=== PATIENT | female | born 1990 | race Caucasian/White ===

== ENCOUNTER → 2023-05-25 10:00 | Outpatient (CLI) | payer OTHER, SELFPAY ==
--- NOTE | ~2023-05-25 | US_ITS ---
Pelvic ultrasound. Clinical History: Pelvic pain Technique: Realtime transabdominal and transvaginal scanning of the pelvis was performed. Color flow Doppler and Doppler spectral analysis were performed. Findings: The uterus is anteverted. The endometrial stripe has a thickness of 5 mm. IUD in satisfact ory position. No focal mass is identified. The right ovary measures 2.2 x 3.4 x 1.8 cm. No significant right ovarian or adnexal mass is seen. The left ovary measures 2.6 x 1.4 x 2.5 cm. No significant left ovarian or adnexal mass is seen. There is trace free fluid in the cul de sac. Impression: IUD in satisfactory position, otherwise unremarkable exam. Reviewed, dictated and finalized at [facility]. Impression: IUD in satisfactory position, otherwise unremarkable exam.
== END ==
PROVIDERS: PCP Advanced Practice Midwife; Visit Provider Advanced Practice Midwife
DX: R10.32 Left lower quadrant pain (principal)
CPT/HCPCS: 76856

== ENCOUNTER 2023-05-29 12:03 | Emergency (ER) | payer OTHER, SELFPAY ==
--- NOTE | ~2023-05-29 | CT_ITS ---
EXAMINATION: CT abdomen pelvis w con INDICATION: Generalized pelvic pain TECHNIQUE: Computed tomographic images of the abdomen and pelvis were obtained after the administrati on of 100 cc of Omnipaque 350 intravenous contrast. The dose-length product (DLP) was 625.27 mGy-cm. Automated exposure control and iterative reconstruction technique were employed. COMPARISON: None available FINDINGS: Minimal dependent atelectasis is present in the lung bases. The heart size is normal. The l iver, spleen, pancreas, gallbladder, and adrenal glands are normal. The kidneys are unremarkable. No pathologically enlarged abdominal or pelvic lymph nodes are identified. No free intraperitoneal gas o r evidence of bowel obstruction. An IUD is present in the uterus in expected position. There is a sma ll volume of fluid in the cul-de-sac. There is a tiny umbilical hernia containing fat. IMPRESSION: 1. No CT correlate for the patient's symptoms. Small volume of free fluid in the cul-de-sac, likely p hysiologic. Reviewed, dictated and finalized at location [facility]. IMPRESSION: 1. No CT correlate for the patient's symptoms. Small volume of free fluid in th e cul-de-sac, likely physiologic.
[2023-05-29 12:05] VITALS: BP 145/92; PULSE 90; RESP 16; TEMP 36.7; O2SAT 97
[2023-05-29 12:26] LABS: Basophils Absolute Auto 0.1 K/mm3 (0.0-0.1); Basophils Percent Auto 0.6 % (0.2-1.2); Eosinophils Absolute Auto 0.1 K/mm3 (0-0.3); Eosinophils Percent Auto 1.2 % (0-4.4); Hematocrit 42.9 % (37.0-47.0); Hemoglobin 13.6 g/dL (12.0-15.0); Immature Granulocyte Absolute 0.03 K/mm3 (0.00-0.031); Immature Granulocyte Percent A 0.3 % (0-0.5); Lymphocytes Absolute Auto 2.52 K/mm3 (0.9-3.2); Lymphocytes Percent Auto 24.1 % (18.3-44.2); Mean Corpuscular HGB Conc 31.7 g/dl (32-36); Mean Corpuscular Hemoglobin 29.4 pg (26-34); Mean Corpuscular Volume 92.7 fl (80-100); Mean Platelet Volume 11.5 fl (7.4-10.4); Monocytes Absolute Auto 0.7 K/mm3 (0.1-0.6); Monocytes Percent Auto 6.9 % (2.6-8.5); Neutrophils Percent Auto 66.9 % (45.5-73.1); Platelet Count Result 245 k/mm3 (150-375); Red Blood Count 4.63 M/mm3 (4.2-5.4); Red Cell Distribution Width 13.2 % (11.5-14.5); White Blood Count 10.5 K/mm3 (4.5-10.0)
[2023-05-29 12:35] LABS: Alanine Aminotransferase 17 U/L (6-35); Albumin Level 4.9 g/dL (3.5-5.1); Alkaline Phosphatase 65 U/L (38-126); Anion Gap 11 mmol/L (8-16); Aspartate Amino Transferase 23 U/L (14-36); Bilirubin,Total 0.9 mg/dL (0.2-1.3); Blood Urea Nitrogen 11 mg/dL (7-17); Calcium 9.2 mg/dL (8.4-10.2); Carbon Dioxide 26 mmol/L (22-30); Chloride 103 mmol/L (98-107); Estimated CRCL calculation 120 ml/min; Estimated Glomerular Filt Rate > 60; Glucose 98 mg/dL (65-110); Lipase 48 U/L (23-300); Potassium 3.8 mmol/L (3.4-5.0); Sodium 140 mmol/L (137-145)
[2023-05-29 12:41] LABS: Appearance Urine Clear (Clear); Bacteria Urine None Seen /hpf; Bilirubin Urine Negative (Negative); Blood Urine Negative (Negative); Color Urine Yellow (Yellow); Glucose Urine UA Negative (Negative); Ketones Urine Trace mg/dL (Negative); Leukocyte Esterase Ur 2+ LEU/UL (Negative); Need Manual Microscopic Reviewed; Nitrate Urine Negative (Negative); Non Pathogenic Casts 0-2; Protein Urine Negative (Negative); Specific Grav Ur 1.008 (1.001-1.035); Squamous Epithelial Cell Urine Occasional /hpf (Few); Urobilinogen Urine 0.2 mg/dL (<2.0); pH Urine 5.5 (5.0-9.0)
[2023-05-29 12:42] LABS: Add Urine Microscopic? YES
--- NOTE | 2023-05-29 12:45 | ED.ABDPAIN ---
HPI - Abdominal Pain General Chief Complaint: Abdominal Pain Stated Complaint: abdominal pain Time Seen by Provider: 05/29/23 12:27 History of Present Illness HPI narrative: Patient is a 33-year-old female , all delivered via uncomplicated vaginal deliveries, last was in 2016, here with pelvic and abdominal pain. patient notes that the pain is been present intermittently for the last 1 month. The pain seems to be located on the left side and suprapubically. She intermittently takes ibuprofen which occasionally helps with the pain but does not make it fully resolved. She does not have a primary care doctor so she went to see her OBGYN this week and they ordered at transvaginal ultrasound. The ultrasound resulted normal today so the patient was concerned that she had no answers for why her pain was present so his prompted her to come to the emergency department for evaluation given her lack of primary care doctor. She denies any associated nausea or vomiting. She denies any urinary symptoms. She denies any vaginal bleeding or discharge. She notes that she has had no prior abdominal surgeries. No family history of colon cancer, no prior colonoscopy herself. She does note a long standing history of some diarrhea with eating spicy foods but otherwise has had normal bowel movements. No sick contacts. Related Data Allergies Allergy/AdvReac Type Severity Reaction Status Date / Time No Known Allergies Allergy Unverified 05/19/16 14:44 Review of Systems Review of Systems: CONSTITUTIONAL: Denies fever, chills, or sweats. EYES: Denies visual changes, redness, or discharge. ENT: Denies rhinorrhea, congestion, sore throat, or otalgia. CARDIOVASCULAR: Denies chest pain, palpitations, or edema. RESPIRATORY: Denies cough or dyspnea. GASTROINTESTINAL: abdominal pain, no nausea or vomiting, occasional chronic diarrhea. GENITOURINARY: Denies dysuria or hematuria. SKIN: Denies rash or itching. MUSCULOSKELETAL: Denies back pain, joint pain, or myalgia. NEUROLOGIC: Denies headache, numbness, or weakness. PSYCHIATRIC: Denies anxiety or depression. Exam Narrative: GENERAL: Well-appearing, well-nourished, and in no acute distress. HEAD: Normocephalic, atraumatic. EYES: PERRLA and EOMI. ENT: Nares clear. Mucous membranes moist. NECK: Supple. CHEST: Clear to auscultation. No respiratory distress. HEART: Regular rate and rhythm. Normal peripheral pulses. ABDOMEN: Soft, mild tenderness diffusely on the left side and suprapubically, nondistended, no rebound or guarding. EXTREMITIES: Normal range of motion. No edema. SKIN: Warm, dry, no rash. NEURO: No focal deficits. Alert and oriented x3. PSYCH: Normal mood and affect. Course Course Emergency Course: Chart review performed. Patient is a 33-year-old female here with abdominal and pelvic pain for 1 month. No prior visits in our system. I am able to view a pelvic ultrasound from 05/25/23 which was unremarkable. Triage vitals grossly normal. Triage lab work reviewed. White blood cell count of 10.5, normal hemoglobin, electrolytes within normal limits, normal renal function, normal liver function, normal lipase. Bedside test negative. Patient seen evaluated, in no acute distress. She does have tenderness in the left side and suprapubically. Urine is not concrete for UTI however does have some leukocytes. She has a normal ultrasound which can be viewed by myself. Differentials include diverticulitis, colitis, intraabdominal infectious process will do CT abdomen pelvis. CT negative, small amount of free fluid in the cul-de-sac, likely physiologic. Tylenol ordered. Will reevaluate the patient. Patient reevaluated, feeling well, continues to be non toxic appearing. The results of pertinent diagnostic studies and exam findings were discussed. The patient?s provisional diagnosis and plan of care were discussed with the patient and present family. The patient and/or pr
[2023-05-29] MEDS: ACETAMINOPHEN 500 MG TABLET 1000 MG PO (13:56)
== END 2023-05-29 14:26 | disposition home or self-care (01) ==
PROVIDERS: Emergency Medicine; Emergency Provider Student in an Organized Health Care Education/Training Program; PCP Advanced Practice Midwife
DX: R10.2 Pelvic and perineal pain (principal); R10.30 Lower abdominal pain, unspecified
CPT/HCPCS: 36415; 74177; 80053; 81001; 81025; 83690; 85025; 87086; 87088; 99284; A9270; Q9967